=== PATIENT | male | born 2000 | race Caucasian/White ===

== ENCOUNTER 2021-05-11 09:38 | Emergency (ER) | payer BC ==
[2021-05-11] MEDS ORDERED: DIPHENHYDRAMINE 50 MG/ML VIAL ONE (10:43)
--- NOTE | 2021-05-11 10:50 | ER ---
Nurse's Notes [facility] Name: Jaxson Mares Age: 21 yrs Sex: Male : 2000 Arrival Date: 05/11/2021 Time: 09:45 Bed 7 Private MD: Diagnosis: Extrapyramidal and movement disorder, unspecified Presentation: 05/11 10:01 Chief complaint: Patient states: started ziprasidone hcl 40 mg last night , woke up iw this morning and is having involuntary muscle tremors/jerking , was taken off duloxetine and Strattera and started on this, hx of anxiety and depression. Coronavirus screen: At this time, the client does not indicate any symptoms associated with coronavirus-19. Ebola Screen: Patient negative for fever greater than or equal to 101.5 degrees Fahrenheit, and additional compatible Ebola Virus Disease symptoms Patient denies exposure to infectious person. Patient denies travel to an Ebola-affected area in the 21 days before illness onset. No symptoms or risks identified at this time. Initial Sepsis Screen: Does the patient meet any 2 criteria? No. Patient's initial sepsis screen is negative. Does the patient have a suspected source of infection? No. Patient's initial sepsis screen is negative. Risk Assessment: Do you want to hurt yourself or someone else? Patient reports no desire to harm self or others. Onset of symptoms was May 11, 2021. 10:01 Method Of Arrival: Ambulatory iw 10:01 Acuity: RADHA 3 iw Historical: - Allergies: 10:04 No Known Allergies; iw - Home Meds: 10:04 ziprasidone HCl 40 mg oral cap 1 cap nightly [Active]; Concerta 36 mg Oral tr24 twice a iw day [Active]; metoprolol succinate 25 mg oral Tb24 1 tab once daily [Active]; - PMHx: 10:04 Depressive disorder; Anxiety; iw - Immunization history:: Client reports receiving the 2nd dose of the Covid vaccine. - Social history:: Smoking status: . Screenin: Abuse screen: Denies threats or abuse. Denies injuries from another. Nutritional ph screening: No deficits noted. Tuberculosis screening: No symptoms or risk factors identified. Fall Risk None identified. Assessment: 10:29 Reassessment: repetitive jerking motions noted to upper body upon arrival, appears to ph have improved significantly after IV Benadryl, will continue to monitor. General: Appears in no apparent distress. comfortable, Behavior is calm, cooperative, appropriate for age. Pain: Denies pain. Neuro: Level of Consciousness is awake, alert, obeys commands, Oriented to person, place, time, situation. Cardiovascular: Capillary refill < 3 seconds in bilateral fingers Patient's skin is warm and dry. Respiratory: Airway is patent Respiratory effort is even, unlabored, Respiratory pattern is regular, symmetrical. GI: No signs and/or symptoms were reported involving the gastrointestinal system. Derm: Skin is intact, is healthy with good turgor, Skin is pink, warm \T\ dry. Musculoskeletal: Circulation, motion, and sensation intact. Range of motion: intact in all extremities. 11:11 Reassessment: Patient appears in no apparent distress at this time. Patient and/or ph family updated on plan of care and expected duration. Pain level reassessed. Patient is alert, oriented x 3, equal unlabored respirations, skin warm/dry/pink. Pt d/c home w/ family, instructed to follow up w/ PCP to change home medication. Vital Signs: 10:01 BP 129 / 74; Pulse 91; Resp 16; Temp 98.7; Pulse Ox 99% on R/A; Weight 99.79 kg; Height iw 5 ft. 11 in. (180.34 cm); 11:11 BP 118 / 72; Pulse 87; Resp 18; Temp 98.2; Pulse Ox 99% on R/A; ph 10:01 Body Mass Index 30.68 (99.79 kg, 180.34 cm) iw ED Course: 09:45 Patient arrived in ED. iw 10:03 Triage completed. iw 10:05 Arm band placed on. iw 10:06 Devin Carlos PA is PHCP. jr8 10:06 Shantanu Meneses MD is Attending Physician. jr8 10:12 Kaycee Madrigal RN is Primary Nurse. ph 10:29 Patient has correct armband on for positive identification. Bed in low position. Call ph light in reach. Side rails up X 1. Pulse ox on. NIBP on. 10:31 No provider procedures requiring assistance completed. Inserted saline lock: 22 gauge ph in right antecubital area, using aseptic technique. 11:12 IV discontinued, intact, bleeding controlled, No redness/swelling at site. Pressure ph dressing applied. Administered Medications: 10:28 Drug: Benadryl (diphenhydrAMINE) 50 mg Route: IVP; Site: right antecubital; ph 11:12 Follow up: Response: No adverse reaction; Marked relief of symptoms ph Outcome: 10:50 Discharge ordered by MD. deutsch 11:12 Discharged to home ambulatory, with family. ph 11:12 Condition: good 11:12 Discharge instructions given to patient, Instructed on discharge instructions, follow up and referral plans. Demonstrated understanding of instructions, follow-up care. 11:12 Patient left the ED. ph Signatures: Gracie Smith RN RN iw Devin Carlos PA PA jr8 Kaycee Madrigal RN RN ph
--- NOTE | 2021-05-11 10:50 | EDPHYS ---
Physician Documentation [facility] Name: Jaxson Mares Age: 21 yrs Sex: Male : 2000 Arrival Date: 05/11/2021 Time: 09:45 Bed 7 Private MD: ED Physician Shantanu Meneses HPI: 05/11 10:46 This 21 yrs old Male presents to ER via Ambulatory with complaints of adverse jr8 reaction to new medication. 10:46 Onset: The symptoms/episode began/occurred acutely, today. Severity of symptoms: At jr8 their worst the symptoms were moderate in the emergency department the symptoms are unchanged. The patient has not experienced similar symptoms in the past. The patient has not recently seen a physician. Started on Zyprexa yesterday. Today starting having irregular jerking motions. Came to the emergency room for further evaluation at that time.. Historical: - Allergies: 10:04 No Known Allergies; iw - Home Meds: 10:04 ziprasidone HCl 40 mg oral cap 1 cap nightly [Active]; Concerta 36 mg Oral tr24 twice a iw day [Active]; metoprolol succinate 25 mg oral Tb24 1 tab once daily [Active]; - PMHx: 10:04 Depressive disorder; Anxiety; iw - Immunization history:: Client reports receiving the 2nd dose of the Covid vaccine. - Social history:: Smoking status: . ROS: 10:46 Eyes: Negative for injury, pain, redness, and discharge, ENT: Negative for injury, jr8 pain, and discharge, Neck: Negative for injury, pain, and swelling, Cardiovascular: Negative for chest pain, palpitations, and edema, Respiratory: Negative for shortness of breath, cough, wheezing, and pleuritic chest pain, Abdomen/GI: Negative for abdominal pain, nausea, vomiting, diarrhea, and constipation, Back: Negative for injury and pain, MS/Extremity: Negative for injury and deformity, Skin: Negative for injury, rash, and discoloration. 10:46 Neuro: Positive for Movement disorder. Exam: 10:46 Constitutional: This is a well developed, well nourished patient who is awake, alert, jr8 and in no acute distress. ENT: Nares patent. No nasal discharge, no septal abnormalities noted. Tympanic membranes are normal and external auditory canals are clear. Oropharynx with no redness, swelling, or masses, exudates, or evidence of obstruction, uvula midline. Mucous membranes moist. Neck: Trachea midline, no thyromegaly or masses palpated, and no cervical lymphadenopathy. Supple, full range of motion without nuchal rigidity, or vertebral point tenderness. No Meningismus. Cardiovascular: Regular rate and rhythm with a normal S1 and S2. No gallops, murmurs, or rubs. Normal PMI, no JVD. No pulse deficits. Respiratory: Lungs have equal breath sounds bilaterally, clear to auscultation and percussion. No rales, rhonchi or wheezes noted. No increased work of breathing, no retractions or nasal flaring. Abdomen/GI: Soft, non-tender, with normal bowel sounds. No distension or tympany. No guarding or rebound. No evidence of tenderness throughout. Back: No spinal tenderness. No costovertebral tenderness. Full range of motion. Skin: Warm, dry with normal turgor. Normal color with no rashes, no lesions, and no evidence of cellulitis. MS/ Extremity: Pulses equal, no cyanosis. Neurovascular intact. Full, normal range of motion. Neuro: Awake and alert, GCS 15, oriented to person, place, time, and situation. Cranial nerves II-XII grossly intact. Motor strength 5/5 in all extremities. Sensory grossly intact. Cerebellar exam normal. Normal gait. Extraparametal motions noted Vital Signs: 10:01 BP 129 / 74; Pulse 91; Resp 16; Temp 98.7; Pulse Ox 99% on R/A; Weight 99.79 kg; Height iw 5 ft. 11 in. (180.34 cm); 11:11 BP 118 / 72; Pulse 87; Resp 18; Temp 98.2; Pulse Ox 99% on R/A; ph 10:01 Body Mass Index 30.68 (99.79 kg, 180.34 cm) iw MDM: 10:18 Patient medically screened. jr8 10:46 Data reviewed: vital signs, nurses notes. Data interpreted: Pulse oximetry: on room air jr8 is 99 %. Interpretation: normal. Counseling: I had a detailed discussion with the patient and/or guardian regarding: the historical points, exam findings, and any diagnostic results supporting the discharge/admit diagnosis, the need for outpatient follow up, a psychiatrist, to return to the emergency department if symptoms worsen or persist or if there are any questions or concerns that arise at home. Response to treatment: the patient's symptoms have resolved after treatment. ED course: Patient doing much better after 50 mg of Benadryl IV. We will continue to monitor patient for the next 45 minutes to an hour to ensure that symptoms remain resolved. Discussed with patient that he cannot take Zyprexa any longer and he is to follow-up with his primary care physician or psychiatrist for reevaluation and new medication. 05/11 10:19 Order name: IV; Complete Time: jr8 Administered Medications: Drug: Benadryl (diphenhydrAMINE) 50 mg Route: IVP; Site: right antecubital; ph 11:12 Follow up: Response: No adverse reaction; Marked relief of symptoms ph Disposition: 14:56 Co-signature as Attending Physician, Shantanu Meneses MD. rn Disposition Summary: 05/11/21 10:50 Discharge Ordered Location: Home jr8 Problem: new jr8 Symptoms: are resolved jr8 Condition: Stable jr8 Diagnosis - Extrapyramidal and movement disorder, unspecified jr8 Followup: jr8 - With: Private Physician - When: 2 - 3 days - Reason: Recheck today's complaints, Continuance of care, Re-evaluation by your physician Discharge Instructions: - Discharge Summary Sheet jr8 - Dystonic Reaction jr8 Forms: - Medication Reconciliation Form jr8 - Thank You Letter jr8 - Antibiotic Education jr8 - Prescription Opioid Use jr8 Signatures: Gracie Smith RN RN Shantanu Meneses MD MD rn Roszak, Josh, PA [place] jr8 Kaycee Madrigal RN RN ph
[2021-05-11 11:19] VITALS: O2SAT 99
[2021-05-11 11:21] VITALS: BP 118/72; TEMP 98.2
== END 2021-05-11 11:12 | disposition home or self-care (01) ==
LOC: ER 09:38
DX: G25.9 Extrapyramidal and movement disorder, unspecified (principal); F32.9 Major depressive disorder, single episode, unspecified
CPT/HCPCS: 96374; 99283; J1200

== ENCOUNTER 2021-05-20 16:03 | Emergency (ER) | payer BC | END 2021-05-20 17:17 | disposition left against medical advice (07) | LOC: ER 16:03 | DX: Z02.9 Encounter for administrative examinations, unspecified (principal) ==